=== PATIENT | female | born 1990 | race African-American/Black ===

== ENCOUNTER 2016-11-28 15:02 | Emergency (ER) | payer OTHER ==
[~2016-11-28] VITALS: Ht 162.6 cm; Wt 77.0 kg
[2016-11-28 15:09] VITALS: BP 147/69; PULSE 65; RESP 15; TEMP 98.1; O2SAT 99
--- NOTE | 2016-11-28 15:13 | PD ---
Physical Exam Date Seen by Provider: Nov 28, 2016 Time Seen by Provider: 15:11 Narrative 26 year old female presents to the emergency department for evaluation of bleeding during . Patient states she recently found out she was . She had sex with her 2 nights ago and has been having vaginal bleeding since. She states her LMP was sometime in September. Patient awaiting bed placement. Data Data Last Documented VS Vital Signs Date Time Temp Pulse Resp B/P Pulse Ox O2 Delivery O2 Flow Rate FiO2 11/28/16 15:09 98.1 65 15 147/69 99 MDM Supervised Visit with VALENTINO: Connie Goodwin Nov 28, 2016 15:13
--- NOTE | 2016-11-28 16:32 | PD ---
HPI Chief Complaint: Related Problem Time Seen by Provider: 16:17 Travel History International Travel<30 days: No Contact w/Intl Traveler<30days: No Traveled to known affect area: No History of Present Illness HPI 26-year-old female here with complaint of vaginal bleeding and . Patient's last missed her period is unknown, sometime in September. Patient states that she had vaginal intercourse with her 2 days ago and since has had slight amount of spotting per vagina, this is only when she wipes on the toilet paper. Slightly pinkish colored on the toilet paper. No vaginal clots, no pain. Patient took a home test today, actually 5 of them, which were all positive prompting her ER visit. [facility] Past Medical History Medical History: Denies Significant Hx ?: LMP: 09/2016 Social History Tobacco Use: No Allergies-Medications (Allergen,Severity, Reaction): Coded Allergies: Red Dyes - Various (Verified Allergy, Severe, RASH, 11/28/16) Review of Systems Except as stated in HPI: all other systems reviewed are Neg Physical Exam Narrative GENERAL: Well-appearing female in no acute distress SKIN: Focused skin assessment warm/dry. HEAD: Normocephalic. EYES: No scleral icterus. No injection or drainage. ENT: No nasal bleeding or discharge. Mucous membranes pink and moist. NECK: Supple CARDIOVASCULAR: Regular rate and rhythm. RESPIRATORY: No accessory muscle use. GASTROINTESTINAL: Abdomen soft, non-tender, nondistended. MUSCULOSKELETAL: Normal gait NEUROLOGICAL: Awake and alert. Normal speech. PSYCHIATRIC: Appropriate mood and affect; insight and judgment normal. Data Data Last Documented VS Vital Signs Date Time Temp Pulse Resp B/P Pulse Ox O2 Delivery O2 Flow Rate FiO2 11/28/16 15:09 98.1 65 15 147/69 99 Orders Ed Urine Pregnancytest Poc (11/28/16 16:16) Ed Poc Ultrasound (11/28/16 ) [facility] Medical Decision Making Medical Screen Exam Complete: Yes Emergency Medical Condition: Yes Medical Record Reviewed: Yes Differential Diagnosis 26-year-old female here with complaint of and spotting. Differential includes , ectopic , threatened AB, missed AB, inevitable AB. My strong suspicion however is that her symptoms are due to local trauma, with recent vaginal intercourse. Narrative Course Urine test positive. Bedside ultrasound showing IUP with heart rate. Patient reassured and discharged home. Procedures Procedure Narrative Emergency Department Pelvic ultrasound was performed with patient consent. The curvilinear probe was used in the transverse and sagittal views within the suprapubic region revealing an intrauterine . heart rate was 120s. See this measures approximately 6 weeks by crown-rump length Diagnosis Primary Impression: Threatened Referrals: [facility] call for appointment [facility] call for appointment Patient Instructions: General Instructions, Threatened Miscarriage (ED) Additional Instructions: vitamins. Follow-up with [facility] to establish care for this . Return to the ER for the warning signs discussed. Med/Other Pt SpecificInfo: No Change to Meds Disposition: 01 DISCHARGE HOME Condition: Stable Lyubov Martinez MD Nov 28, 2016 16:32
[2017-01-09] MEDS ORDERED: CEPH-460 PO (11:42)
[2017-01-09] MEDS ORDERED: FERR325T PO (11:49)
== END 2016-11-28 17:09 | disposition home or self-care (01) ==
LOC: NEPD 15:02
DX: O20.0 Threatened abortion (principal); Z3A.01 Less than 8 weeks gestation of pregnancy
CPT/HCPCS: 99283

== ENCOUNTER → 2017-01-14 | Outpatient (CLI) | payer OTHER ==
[~2017-01-14] MED LIST: CEPH-460 PO; FERR325T PO
== END ==
LOC: HPND 08:03
PROVIDERS: ATTEND Family Medicine
DX: Z36 Encounter for antenatal screening of mother (principal)
CPT/HCPCS: 76801